=== PATIENT | female | born 1975 | race Caucasian/White ===

== ENCOUNTER 2018-05-07 19:09 | Inpatient (IN) | payer MEDICAID ==
[~2018-05-07] VITALS: Ht 157.5 cm; Wt 115.2 kg
[2018-05-07 19:16] VITALS: Ht 157.5 cm; Wt 115.2 kg
[2018-05-07] MEDS ORDERED: hydrALAzine 20 MG INJ IV ONE (20:00)
[2018-05-07] MEDS ORDERED: FUROSEMIDE 20 MG INJ IV ONE (21:00)
[2018-05-07] MEDS ORDERED: METOPROLOL 5 MG INJ IV ONE (21:00)
[2018-05-07] MEDS ORDERED: ACETAMINOPHEN 325 MG TAB PO PRN (22:00)
[2018-05-07] MEDS ORDERED: ONDANSETRON 4 MG INJ IV PRN (22:00)
[2018-05-07 22:18] VITALS: PULSE 95
--- NOTE | 2018-05-07 22:30 | ERD ---
ER Documentation Chief Complaint Chief Complaint sob, anxiety, htn; symptoms x 2 weeks but getting worse HPI 42-year-old female presenting with complaints of shortness of breath at rest, worse with any exertion. Her symptoms started 2 weeks ago and are progressively worsening. She was seen at [facility] where she was given labetalol to take outpatient for new diagnosis of hypertension. However she did not tolerate that medication so she stopped taking it. She has not followed up outpatient with a primary doctor. She had bilateral lower extremity swelling that seems to be somewhat improved. However she has difficulty sleeping at night due to her shortness of breath. She complains of extreme fatigue, wo rsened by any type of exertion. No fevers or chills. She does have a cough. She does have chest tightening with exertion as well. Currently she denies any chest pain. ROS All systems reviewed and are negative except as per history of present illness. Allergies Allergies: Coded Allergies: No Known Allergy (Unverified , 05/07/18) PMhx/Soc History of Surgery: Yes (4 CS) Anesthesia Reaction: No Hx Neurological Disorder: No Hx Respiratory Disorders: No Hx Cardiac Disorders: Yes (HTN) Hx Psychiatric Problems: No Hx Miscellaneous Medical Probl: No Hx Alcohol Use: No Hx Substance Use: Yes (Marijuana, occasional meth) Hx Tobacco Use: No Smoking Status: Never smoker FmHx Mother had lupus Physical Exam Vitals Vital Signs Date Temp Pulse Resp B/P (MAP) Pulse Ox O2 O2 Flow FiO2 Time Delivery Rate 05/07/18 95 22:18 05/07/18 91 18 184/134 99 Room Air 22:05 (151) 05/07/18 107 19 208/151 99 Room Air 21:32 (170) 05/07/18 103 17 197/138 100 Room Air 20:46 (157) 05/07/18 105 20 200/138 98 Room Air 20:16 (158) 05/07/18 111 22 213/60 99 Room Air 19:35 (110) 05/07/18 98.4 117 18 232/168 98 19:16 (189) Physical Exam Const: No acute distress Head: Atraumatic Eyes: Normal Conjunctiva ENT: Normal External Ears, Nose and Mouth. Neck: Full range of motion. No meningismus. No obvious JVD but exam limited by body habitus Resp: Bibasilar crackles. No wheezing Cardio: Tachycardic, regular rhythm, no murmurs. 2+ distal pulses Abd: Soft, non tender, non distended. Normal bowel sounds Skin: No petechiae or rashes Back: No midline or flank tenderness Ext: No cyanosis, 1+ bilateral lower extremity pitting edema up to the mid bailey. Neur: Awake and alert Psych: Normal Mood and Affect Result Diagram: 05/07/18195805/07/181958 Results 24 hrs Laboratory Tests Test 05/07/18 19:59 05/07/18 20:35 05/07/18 20:42 White Blood Count 11.0 10^3/ul Red Blood Count 4.49 10^6/ul Hemoglobin 11.3 g/dl Hematocrit 35.1 % Mean Corpuscular Volume 78.2 fl Mean Corpuscular Hemoglobin 25.2 pg Mean Corpuscular 32.2 g/dl Hemoglobin Concent Red Cell Distribution Width 14.6 % Platelet Count 351 10^3/UL Mean Platelet Volume 9.7 fl Immature Granulocytes % 0.600 % Neutrophils % 74.8 % Lymphocytes % 17.4 % Monocytes % 4.4 % Eosinophils % 1.9 % Basophils % 0.9 % Nucleated Red Blood Cells % 0.2 /100WBC Immature Granulocytes # 0.070 10^3/ul Neutrophils # 8.2 10^3/ul Lymphocytes # 1.9 10^3/ul Monocytes # 0.5 10^3/ul Eosinophils # 0.2 10^3/ul Basophils # 0.1 10^3/ul Nucleated Red Blood Cells # 0.0 10^3/ul Sodium Level 139 mmol/L Potassium Level 4.0 mmol/L Chloride Level 107 mmol/L Carbon Dioxide Level 21 mmol/L Anion Gap 11 Blood Urea Nitrogen 28 mg/dl Creatinine 1.09 mg/dl Est Glomerular Filtrat 55 mL/min Rate mL/min Glucose Level 125 mg/dl Calcium Level 9.0 mg/dl Total Bilirubin 0.6 mg/dl Direct Bilirubin 0.00 mg/dl Indirect Bilirubin 0.6 mg/dl Aspartate Amino 50 IU/L Transf (AST/SGOT) Alanine 69 IU/L Aminotransferase (ALT/SGPT) Alkaline Phosphatase 54 IU/L Troponin I 0.032 ng/ml B-Type Natriuretic Peptide 95765 PG/ML Total Protein 6.3 g/dl Albumin 3.6 g/dl Globulin 2.70 g/dl Albumin/Globulin Ratio 1.33 Urine Color YELLOW Urine Clarity CLEAR Urine pH 6.0 Urine Specific [place] 1.015 Urine Ketones NEGATIVE mg/dL Urine Nitrite NEGATIVE mg/dL Urine Bilirubin NEGATIVE mg/dL Urine Urobilinogen NEGATIVE mg/dL Urine Leukocyte Esterase NEGATIVE Fredo/ul Urine Microscopic RBC 0 /HPF Urine Microscopic WBC 1 /HPF Urine Squamous Epithelial Cells FEW /HPF Urine Mucus FEW /HPF Urine Hemoglobin NEGATIVE mg/dL Urine Glucose NEGATIVE mg/dL Urine Total Protein 2+ mg/dl POC Beta HCG, Qualitative NEGATIVE Current Medications Medications Dose Sig/Boris Start Time Status Last (Trade) Ordered Route PRN Stop Time Admin Dose Reason Admin Hydralazine 10 mg ONCE ONCE 05/07/18 DC 05/07/18 HCl IV 20:00 19:56 (Apresoline) 05/07/18 20:01 Metoprolol 5 mg ONCE ONCE 05/07/18 DC 05/07/18 Tartrate IV 21:00 21:32 (Lopressor) 05/07/18 21:01 Furosemide 20 mg ONCE ONCE 05/07/18 DC 05/07/18 (Lasix) IV 21:00 21:31 05/07/18 21:01 Ondansetron 4 mg ER BRIDGE 05/07/18 HCl (Zofran PRN IV 22:00 05/08/18 Inj) NAUSEA/VOMITI 21:59 NG 650 mg ER BRIDGE 05/07/18 Acetaminophen PRN PO 22:00 05/08/18 (Tylenol .MILD PAIN 21:59 Tab) 1-3 OR TEMP Procedures/MDM EMERGENT LABS AND DIAGNOSTIC STUDIES: Lab Results above were reviewed and interpreted by me. CBC: no anemia or evidence of infection CMP: Elevated BUN and slightly elevated creatinine, possibly due to renal insufficiency. No evidence of electrolyte abnormality, hypoglycemia, liver failure, or biliary obstruction BNP significantly elevated at 10,500, appropriate in the setting of acute CHF Troponin within normal limits, not indicative of cardiac ischemia 12-lead EKG #1 was interpreted by Rosales Padilla MD: Sinus tachycardia 116 bpm Normal axis Normal intervals No acute ST or T wave changes suggestive of acute ischemia or STEMI. 12-lead EKG #2 was interpreted by Rosales Padilla MD: Sinus tachycardia 116 bpm Normal axis Normal intervals No acute ST or T wave changes suggestive of acute ischemia or STEMI. Radiology Results as interpreted by Radiology below were reviewed by Robert Padilla MD: Chest x-ray shows cardiomegaly, no evidence of fluid overload or consolidation Initial Nursing notes reviewed. Previous Medical Records requested via the Electronic Health Record. EMERGENCY DEPARTMENT COURSE / MEDICAL DECISION MAKING: Patient symptoms are worrisome for acute heart failure secondary to hypertensive emergency. Patient was treated with IV hydralazine, IV metoprolol, and Lasix. There is no evidence of ACS. Patient will require admission for further workup of acute heart failure. Further w/u for ischemia, arrhythmia, PE or dissection will be deferred to the inpatient team. Critical Care Time: 40 minutes Treatments/Evaluations: Close monitoring and treatment of unstable vital signs, cardiorespiratory, and neurologic status, while maintaining tight balance of fluid, respiratory, and cardiac interventions. This time includes discussing the case with the patient and the patients family. This time does not include all procedures stated elsewhere in this record. This time also includes reviewing old records, labs and radiological studies. This time includes examining and re- examining the patient. Additionally, this time also includes arranging care with admitting and consulting physicians. Accepting Care Team: Current data and ongoing care discussed. Time: Time of admission Primary Provider: Dr. Dias Consulting: none Outstanding Data: none Patient's blood pressure was elevated (>120/80) but appears stable without evidence of hypertensive emergency or urgency. The patient was counseled about the risks of hypertension and urged to pursue outpatient monitoring and therapy within a week with their primary care physician. Departure Diagnosis: Primary Impression: Hypertensive emergency Additional Impressions: CHF, acute Heart failure type: unspecified Qualified Codes: I50.9 - Heart failure, unspecified Renal insufficiency Condition: Serious NINA PADILLA MD May 07, 2018 22:30
--- NOTE | 2018-05-07 23:43 | HP ---
Date/Time of Note Date/Time of Note DATE: 05/07/18 TIME: 23:43 Assessment/Plan VTE Prophylaxis Pharmacological prophylaxis: heparin Lines/Catheters IV [facility]from [facility] Saline Lock Assessment/Plan Assessment/Plan 1. New onset CHF -Telemetry monitoring -will diurese -2D echo -Beta-darian and ACEI -Trend troponin 2. Hypertensive urgency: -Manage with beta-darian and ACEI. Adjust antihypertensives as needed 3. Mild renal insufficiency, presumed acute: Most likely secondary to hypertensive nephrosclerosis -Monitor for now. Avoid nephrotoxins -Renal ultrasound and nephrology consult as needed 4. Proteinuria: She will be on ACEI for management of hypertension Result Diagram: 05/07/18195805/07/181958 Results 24hrs Laboratory Tests Test 05/07/18 19:59 05/07/18 20:35 05/07/18 20:42 White Blood Count 11.0 H Red Blood Count 4.49 Hemoglobin 11.3 L Hematocrit 35.1 L Mean Corpuscular Volume 78.2 L Mean Corpuscular Hemoglobin 25.2 L Mean Corpuscular Hemoglobin Concent 32.2 Red Cell Distribution Width 14.6 H Platelet Count 351 Mean Platelet Volume 9.7 Immature Granulocytes % 0.600 H Neutrophils % 74.8 Lymphocytes % 17.4 Monocytes % 4.4 Eosinophils % 1.9 Basophils % 0.9 Nucleated Red Blood Cells % 0.2 H Immature Granulocytes # 0.070 H Neutrophils # 8.2 H Lymphocytes # 1.9 Monocytes # 0.5 Eosinophils # 0.2 Basophils # 0.1 Nucleated Red Blood Cells # 0.0 Sodium Level 139 Potassium Level 4.0 Chloride Level 107 Carbon Dioxide Level 21 Anion Gap 11 Blood Urea Nitrogen 28 H Creatinine 1.09 H Est Glomerular Filtrat Rate mL/min 55 L Glucose Level 125 Calcium Level 9.0 Total Bilirubin 0.6 Direct Bilirubin 0.00 Indirect Bilirubin 0.6 Aspartate Amino Transf (AST/SGOT) 50 H Alanine Aminotransferase (ALT/SGPT) 69 Alkaline Phosphatase 54 Troponin I 0.032 B-Type Natriuretic Peptide 80086 H Total Protein 6.3 Albumin 3.6 Globulin 2.70 Albumin/Globulin Ratio 1.33 Urine Color YELLOW Urine Clarity CLEAR Urine pH 6.0 Urine Specific [place] 1.015 Urine Ketones NEGATIVE Urine Nitrite NEGATIVE Urine Bilirubin NEGATIVE Urine Urobilinogen NEGATIVE Urine Leukocyte Esterase NEGATIVE Urine Microscopic RBC 0 Urine Microscopic WBC 1 Urine Squamous Epithelial Cells FEW Urine Mucus FEW A Urine Hemoglobin NEGATIVE Urine Glucose NEGATIVE Urine Total Protein 2+ H POC Beta HCG, Qualitative NEGATIVE HPI/ROS Admit Date/Time Admit Date/Time May 07, 2018 at 22:30 Hx of Present Illness This is a 42-year-old female with recently diagnosed hypertension who presents to ER complaining of shortness of breath and lower extremity swelling and anxiety. She said symptoms started about a month ago. She said around the time of symptom onset, she was under a lot of stress related to her apartment. Two weeks ago she went to [facility] where she was found to have a systolic blood pressure in the 200s. She was discharged from the ER with la betalol. She took labetalol for 1 day, but stopped taking it because of side effects (nausea, vomiting, itching). She took labetalol again a week ago with similar side effects and as such she stopped it completely. She came to the ER now of breath and lower extremity swelling. When presented to ER, she is found to have a blood pressure of 232/168. BNP of 10,500, creatinine 1.09, BUN 28. Chest x-ray shows cardiomegaly. UA with 2+ protein PMH/Family/Social Past Medical History Medical History: other (Recently diagnosed hypertension) Medications Current Medications Ondansetron HCl (Zofran Inj) 4 mg ER BRIDGE PRN IV NAUSEA/VOMITING; Start 05/07/18 at 22:00; Stop 05/08/18 at 21:59 Acetaminophen (Tylenol Tab) 650 mg ER BRIDGE PRN PO .MILD PAIN 1-3 OR TEMP; Start 05/07/18 at 22:00; Stop 05/08/18 at 21:59 Coded Allergies: No Known Allergy (Unverified , 05/07/18) Past Surgical History Past Surgical Hx: other (See HPI) Family History Significant Family History: no pertinent family hx Social History Alcohol Use: none Smoking Status: Never smoker Drug Use: other (Marijuana and speed when she was younger) Exam/Review of Systems Vital Signs Vitals Vital Signs Date Temp Pulse Resp B/P (MAP) Pulse Ox O2 O2 Flow FiO2 Time Delivery Rate 05/07/18 95 22:18 05/07/18 18 184/134 99 Room Air 22:05 (151) 05/07/18 98.4 19:16 Exam Constitutional: alert, oriented, well developed Head: normocephalic, atraumatic Eyes: EOMI, PERRL Respiratory: clear to auscultation, normal air movement Cardiovascular: regular rate and rhythm, nl pulses Gastrointestinal: soft Extremities: edema STEPHEN FIELDS MD May 07, 2018 23:43
[2018-05-08] VITALS (14 sets, daily range): BP systolic 141–204; BP diastolic 86–128; PULSE 81–95; RESP 17–18
[2018-05-08] MEDS ORDERED: ACETAMINOPHEN 325 MG TAB PO PRN
[2018-05-08] MEDS ORDERED: NACL 0.9% 3 ML SYG IV SCH
[2018-05-08] MEDS ORDERED: IPRATROPIUM (NEB) 0.5 MG/2.5 ML AMP NEB PRN
[2018-05-08] MEDS ORDERED: LEVALBUTEROL (NEB) 0.63 MG/3 ML AMP HHN PRN
[2018-05-08] MEDS ORDERED: LABETALOL HCL 20MG INJ IV PRN
[2018-05-08] MEDS ORDERED: NITROGLYCERIN (SL) 0.4 MG TAB SL PRN
[2018-05-08] MEDS ORDERED: ONDANSETRON 4 MG INJ IV PRN
[2018-05-08] MEDS ORDERED: hydrALAzine 20 MG INJ IV ONE (04:00)
[2018-05-08] MEDS ORDERED: AMLODIPINE 10 MG TAB PO ONE (04:00)
[2018-05-08] MEDS ORDERED: LISINOPRIL 20 MG TAB PO SCH (09:00)
[2018-05-08] MEDS: HEPARIN 5,000 UNIT/1 ML VIAL SC SCH ×2 (09:06→20:40)
[2018-05-08] MEDS ORDERED: POTASSIUM CHLORIDE (SR) 20 MEQ TAB PO STA (10:48)
[2018-05-08] MEDS ORDERED: MAGNESIUM SULFATE 3 GM in DEXTROSE 5% 100 ML IVPB ONE (12:00)
--- NOTE | 2018-05-08 14:41 | PN ---
Date/Time of Note Date/Time of Note DATE: 05/08/18 TIME: 14:40 Assessment/Plan VTE Prophylaxis Risk score (from Nsg)>0 risk: 4 SCD applied (from Nsg): Yes Pharmacological prophylaxis: heparin Lines/Catheters IV Catheter Type (from Nrs): Saline Lock Assessment/Plan Hospital Course SUBJECTIVE: Denies any chest pain or dyspnea. OBJECTIVE: Physical Exam General: Obese, 42 year-old female lying in bed in no apparent distress. HEENT: Normocephalic, atraumatic. Eyes: Anicteric sclerae, conjunctivae clear. ENT: Nasal septum midline, oral mucosa moist. Neck supple. Respiratory: Bilaterally diminished breath sounds. No use of accessory muscles of respiration. Cardiovascular: S1, S2 heard. Regular rate and rhythm. Abdomen: Soft, nontender, and nondistended. Bowel sounds positive in all 4 quadrants. Genitourinary: Deferred. Extremities: No cyanosis, no clubbing. Trace bilateral lower extremity edema. Peripheral pulses palpable. Neurologic: Cranial nerves II through XII grossly intact. The patient is awake, alert, and oriented. Skin: Normal skin turgor. No skin rashes. Labs & Vitals per chart ASSESSMENT & PLAN 42-year-old female with comorbidities including morbid obesity (BMI more than 46 kg/m square), and recently diagnosed hypertension who presented to the local emergency room because of dyspnea, bilateral lower extremity edema, and anxiety. The patient was transferred to [facility] for further management because of insurance reasons. 1. Hypertensive urgency. -Continue to lower her blood pressure gradually. -Continue CHIOMA inhibitors and beta-blockers. 2. Possible underlying congestive heart failure exacerbation, systolic versus diastolic dysfunction. -Pending 2D echocardiogram. -Pending cardiology consult. 3. Proteinuria. -Continue CHIOMA inhibitors. 4. Morbid obesity. -BMI more than 46 kg/m square. -Weight reduction advised. -Hemoglobin A1c 5.7. 5. Fluids, electrolytes, and nutrition. -Low-cholesterol diet. 6. DVT prophylaxis. -Subcutaneous Lovenox. 7. Plan. -Continue blood pressure control. -Await cardiology evaluation. The patient was seen in collaboration with Dr. Oakley. Result Diagram: 05/08/18 0513 05/08/18 0513 Results 24hrs Laboratory Tests Test 05/07/18 19:59 05/07/18 20:35 05/07/18 20:42 05/08/18 00:39 White Blood Count 11.0 H Red Blood Count 4.49 Hemoglobin 11.3 L Hematocrit 35.1 L Mean Corpuscular 78.2 L Volume Mean Corpuscular 25.2 L Hemoglobin Mean Corpuscular 32.2 Hemoglobin Concent Red Cell Distribution 14.6 H Width Platelet Count 351 Mean Platelet Volume 9.7 Immature Granulocytes 0.600 H % Neutrophils % 74.8 Lymphocytes % 17.4 Monocytes % 4.4 Eosinophils % 1.9 Basophils % 0.9 Nucleated Red Blood 0.2 H Cells % Immature Granulocytes 0.070 H # Neutrophils # 8.2 H Lymphocytes # 1.9 Monocytes # 0.5 Eosinophils # 0.2 Basophils # 0.1 Nucleated Red Blood 0.0 Cells # Sodium Level 139 Potassium Level 4.0 Chloride Level 107 Carbon Dioxide Level 21 Anion Gap 11 Blood Urea Nitrogen 28 H Creatinine 1.09 H Est Glomerular 55 L Filtrat Rate mL/min Glucose Level 125 Calcium Level 9.0 Total Bilirubin 0.6 Direct Bilirubin 0.00 Indirect Bilirubin 0.6 Aspartate Amino 50 H Transf (AST/SGOT) Alanine 69 Aminotransferase (ALT /SGPT) Alkaline Phosphatase 54 Troponin I 0.032 0.049 B-Type Natriuretic 21650 H Peptide Total Protein 6.3 Albumin 3.6 Globulin 2.70 Albumin/Globulin 1.33 Ratio Urine Color YELLOW Urine Clarity CLEAR Urine pH 6.0 Urine Specific 1.015 [place] Urine Ketones NEGATIVE Urine Nitrite NEGATIVE Urine Bilirubin NEGATIVE Urine Urobilinogen NEGATIVE Urine Leukocyte NEGATIVE Esterase Urine Microscopic RBC 0 Urine Microscopic WBC 1 Urine Squamous FEW Epithelial Cells Urine Mucus FEW A Urine Hemoglobin NEGATIVE Urine Glucose NEGATIVE Urine Total Protein 2+ H POC Beta HCG, NEGATIVE Qualitative Creatine Kinase 63 Creatine Kinase Index 2.4 Creatinine Kinase MB 1.50 (Mass) Test 05/08/18 05:13 White Blood Count 9.3 Red Blood Count 4.30 Hemoglobin 10.9 L Hematocrit 33.2 L Mean Corpuscular 77.2 L Volume Mean Corpuscular 25.3 L Hemoglobin Mean Corpuscular 32.8 Hemoglobin Concent Red Cell Distribution 14.6 H Width Platelet Count 317 Mean Platelet Volume 9.4 Immature Granulocytes 1.100 H % Neutrophils % 71.6 Lymphocytes % 17.0 Monocytes % 6.9 Eosinophils % 2.5 Basophils % 0.9 Nucleated Red Blood 0.0 Cells % Immature Granulocytes 0.100 H # Neutrophils # 6.6 Lymphocytes # 1.6 Monocytes # 0.6 Eosinophils # 0.2 Basophils # 0.1 Nucleated Red Blood 0.0 Cells # Sodium Level 140 Potassium Level 3.3 L Chloride Level 103 Carbon Dioxide Level 27 Anion Gap 10 Blood Urea Nitrogen 24 H Creatinine 1.05 H Est Glomerular 57 L Filtrat Rate mL/min Glucose Level 78 # Hemoglobin A1c 5.7 Calcium Level 9.1 Magnesium Level 1.4 L Total Bilirubin 0.4 Direct Bilirubin 0.00 Indirect Bilirubin 0.4 Aspartate Amino 35 Transf (AST/SGOT) Alanine 55 Aminotransferase (ALT /SGPT) Alkaline Phosphatase 46 Creatine Kinase 50 Creatine Kinase Index 2.9 Creatinine Kinase MB 1.43 (Mass) Troponin I 0.064 Total Protein 5.8 L Albumin 3.3 Globulin 2.50 Albumin/Globulin 1.32 Ratio Triglycerides Level 145 Cholesterol Level 121 LDL Cholesterol, 62 Calculated HDL Cholesterol 30 L Cholesterol/HDL Ratio 4.0 Thyroid Stimulating 1.630 Hormone (TSH) Exam/Review of Systems Exam Vitals Vital Signs Date Temp Pulse Resp B/P (MAP) Pulse Ox O2 O2 Flow FiO2 Time Delivery Rate 05/08/18 98.1 86 18 161/99 12:30 (119) 05/08/18 97 Room Air 07:36 Intake and Output 05/07/18 05/07/18 05/08/18 1515:00 23:00 07:00 IntakeIntake Total 940 ml BalanceBalance 940 ml Results Results 24hrs Laboratory Tests Test 05/07/18 19:59 05/07/18 20:35 05/07/18 20:42 05/08/18 00:39 White Blood Count 11.0 H Red Blood Count 4.49 Hemoglobin 11.3 L Hematocrit 35.1 L Mean Corpuscular 78.2 L Volume Mean Corpuscular 25.2 L Hemoglobin Mean Corpuscular 32.2 Hemoglobin Concent Red Cell Distribution 14.6 H Width Platelet Count 351 Mean Platelet Volume 9.7 Immature Granulocytes 0.600 H % Neutrophils % 74.8 Lymphocytes % 17.4 Monocytes % 4.4 Eosinophils % 1.9 Basophils % 0.9 Nucleated Red Blood 0.2 H Cells % Immature Granulocytes 0.070 H # Neutrophils # 8.2 H Lymphocytes # 1.9 Monocytes # 0.5 Eosinophils # 0.2 Basophils # 0.1 Nucleated Red Blood 0.0 Cells # Sodium Level 139 Potassium Level 4.0 Chloride Level 107 Carbon Dioxide Level 21 Anion Gap 11 Blood Urea Nitrogen 28 H Creatinine 1.09 H Est Glomerular 55 L Filtrat Rate mL/min Glucose Level 125 Calcium Level 9.0 Total Bilirubin 0.6 Direct Bilirubin 0.00 Indirect Bilirubin 0.6 Aspartate Amino 50 H Transf (AST/SGOT) Alanine 69 Aminotransferase (ALT /SGPT) Alkaline Phosphatase 54 Troponin I 0.032 0.049 B-Type Natriuretic 42910 H Peptide Total Protein 6.3 Albumin 3.6 Globulin 2.70 Albumin/Globulin 1.33 Ratio Urine Color YELLOW Urine Clarity CLEAR Urine pH 6.0 Urine Specific 1.015 [place] Urine Ketones NEGATIVE Urine Nitrite NEGATIVE Urine Bilirubin NEGATIVE Urine Urobilinogen NEGATIVE Urine Leukocyte NEGATIVE Esterase Urine Microscopic RBC 0 Urine Microscopic WBC 1 Urine Squamous FEW Epithelial Cells Urine Mucus FEW A Urine Hemoglobin NEGATIVE Urine Glucose NEGATIVE Urine Total Protein 2+ H POC Beta HCG, NEGATIVE Qualitative Creatine Kinase 63 Creatine Kinase Index 2.4 Creatinine Kinase MB 1.50 (Mass) Test 05/08/18 05:13 White Blood Count 9.3 Red Blood Count 4.30 Hemoglobin 10.9 L Hematocrit 33.2 L Mean Corpuscular 77.2 L Volume Mean Corpuscular 25.3 L Hemoglobin Mean Corpuscular 32.8 Hemoglobin Concent Red Cell Distribution 14.6 H Width Platelet Count 317 Mean Platelet Volume 9.4 Immature Granulocytes 1.100 H % Neutrophils % 71.6 Lymphocytes % 17.0 Monocytes % 6.9 Eosinophils % 2.5 Basophils % 0.9 Nucleated Red Blood 0.0 Cells % Immature Granulocytes 0.100 H # Neutrophils # 6.6 Lymphocytes # 1.6 Monocytes # 0.6 Eosinophils # 0.2 Basophils # 0.1 Nucleated Red Blood 0.0 Cells # Sodium Level 140 Potassium Level 3.3 L Chloride Level 103 Carbon Dioxide Level 27 Anion Gap 10 Blood Urea Nitrogen 24 H Creatinine 1.05 H Est Glomerular 57 L Filtrat Rate mL/min Glucose Level 78 # Hemoglobin A1c 5.7 Calcium Level 9.1 Magnesium Level 1.4 L Total Bilirubin 0.4 Direct Bilirubin 0.00 Indirect Bilirubin 0.4 Aspartate Amino 35 Transf (AST/SGOT) Alanine 55 Aminotransferase (ALT /SGPT) Alkaline Phosphatase 46 Creatine Kinase 50 Creatine Kinase Index 2.9 Creatinine Kinase MB 1.43 (Mass) Troponin I 0.064 Total Protein 5.8 L Albumin 3.3 Globulin 2.50 Albumin/Globulin 1.32 Ratio Triglycerides Level 145 Cholesterol Level 121 LDL Cholesterol, 62 Calculated HDL Cholesterol 30 L Cholesterol/HDL Ratio 4.0 Thyroid Stimulating 1.630 Hormone (TSH) Medications Medication Current Medications Ondansetron HCl (Zofran Inj) 4 mg ER BRIDGE PRN IV NAUSEA/VOMITING; Start 05/07 at 22:00; Stop 05/08/18 at 21:59 Acetaminophen (Tylenol Tab) 650 mg ER BRIDGE PRN PO .MILD PAIN 1-3 OR TEMP Last administered on 05/08/18at 03:57; Admin Dose 650 MG; Start 05/07/18 at 22:00; Stop 05/08/18 at 21:59 IV Flush (NS 3 ml) 3 ml PER PROTOCOL IV ; Start 05/08/18 at 00:00 Ondansetron HCl (Zofran Inj) 4 mg Q6H PRN IV NAUSEA/VOMITING; Start 05/08/18 at 00:00 Nitroglycerin (Nitroglycerin (Sl Tab) 0.4 Mg) 1 tab Q5M PRN SL .CHEST PAIN; Start 05/08/18 at 00:00 Acetaminophen (Tylenol Tab) 650 mg Q6H PRN PO .PAIN 1-3 OR TEMP; Start 05/08/18 at 00:00 Heparin Sodium (Porcine) (Heparin (5000 Units/1ml)) 5,000 unit Q12 SC Last administered on 05/08/18at 09:06; Admin Dose 5,000 UNIT; Start 05/08/18 at 09:00 Ipratropium [place] (Atrovent 0.02% (Neb)) 0.5 mg Q2H RESP THERAPY PRN NEB SHORTNESS OF BREATH; Start 05/08/18 at 00:00 Carvedilol (Coreg) 6.25 mg BID PO Last administered on 05/08/18at 08:57; Admin Dose 6.25 MG; Start 05/08/18 at 00:00 Levalbuterol (Xopenex Neb) 0.63 mg Q2H RESP THERAPY PRN HHN SOB, wheezing, hypoxia; Start 05/08/18 at 00:00 Lisinopril (Zestril) 20 mg DAILY PO Last administered on 05/08/18at 08:57; Admin Dose 20 MG; Start 05/08/18 at 09:00 Magnesium Sulfate 3 gm/Dextrose 106 ml @ 35.333 mls/ hr ONCE ONCE IVPB Last administered on 05/08/18at 12:40; Admin Dose 35.333 MLS/HR; Start 05/08/18 at 12:00; Stop 05/08/18 at 14:59 Hydralazine HCl (Apresoline) 10 mg Q6H PRN IV SBP>160; Start 05/08/18 at 14:00 HOWIE MARSHALL NP May 08, 2018 14:41
[2018-05-08] MEDS: hydrALAzine 20 MG INJ IV PRN (14:54)
--- NOTE | 2018-05-08 16:18 | RADRPT ---
Echocardiogram Report Patient Name: THADDEUS LUCIANOPatient ID: [id number] : 1975 (42y 9m)Study Date: 05/08/2018 1:31:46 PM Gender: FAccession #: [id number] Tech: DollyLayton Patel [facility] Location: 609 Ref.Physician: HOWIE MARSHALL Height(Cm): BSA: Weight(Kg): Quality: AdequateAccount #: Procedures: Echocardiographic Report: Transthoracic echocardiogram with complete 2D, M-Mode, and doppler examination. Indications: Evaluate Left Ventricular function. Measurements: 2D/M Mode Doppler Measurement Value Normal Range Measurement Value Normal Range LVIDd 2D 4.5 [ 3.8 - 5.2 ] cm AV Peak Cj 1.1 [ 100.0 - 170.0 ] cm/sec LVIDs 2D 3.1 [ 2.2 - 3.5 ] cm AV Peak PG 5.0 [ 2.0 - 9.0 ] mmHg LVPWd 2D 1.5 [ 0.6 - 0.9 ] cm LVOT Peak Cj 0.8 [ 70.0 - 110.0 ] cm/sec IVSd 2D 1.5 [ 0.6 - 0.9 ] cm LVOT Peak PG 2.0 [ 2.0 - 6.0 ] mmHg IVS/LVPW 2D 1.0 ratio MV E Peak Cj 1.1 [ 60.0 - 130.0 ] cm/sec AoR Diam 2D 2.9 [ 2.3 - 3.1 ] cm MV A Peak Cj 0.3 [ 100.0 - 120.0 ] cm/sec LA/Ao 2D 1 ratio MV E/A 3.3 [ 0.8 - 1.5 ] ratio LA Dimen 2D 4.2 [ 2.7 - 3.8 ] cm MV Decel Time 151 [ 104 - 258 ] msec Lat E` Cj 0.1 [ 10.0 - 15.0 ] cm/sec MV E/A 3.3 [ 0.8 - 1.5 ] ratio TR Peak Cj 2.1 [ 100.0 - 280.0 ] cm/sec TR Peak PG 18.0 mmHg RVSP 28.0 [ 10.0 - 36.0 ] mmHg RA Pressure 10.0 mmHg Findings: Left Ventricle: Normal left ventricular cavity size. Moderate concentric left ventricular hypertrophy. Mild global left ventricular systolic dysfunction. Ejection fraction is visually estimated at 45 %. Tissue Doppler/Mitral Doppler indices are consistent with restrictive physiology with markedly elevated left atrial pressure (Stage III-IV diastolic dysfunction). Right Ventricle: Normal right ventricular size. Normal right ventricular systolic function. Left Atrium: There is mild enlargement of left atrium. Right Atrium: The right atrium is normal in size. Mitral Valve: Mitral valve leaflets appear mildly thickened. Mild mitral annular calcification. Mild mitral valve regurgitation. Aortic Valve: Normal appearance of the aortic valve. No significant aortic stenosis or insufficiency. Tricuspid Valve: Normal appearance of the tricuspid valve. Estimated peak PA systolic pressure 28 mmHg. There is trace tricuspid regurgitation. Pulmonic Valve: Pulmonic valve not well visualized. Pericardium: Trivial pericardial effusion. Aorta: Normal aortic root. IVC: Normal size and normal respiratory collapse consistent with normal right atrial pressure. Conclusions: Normal left ventricular cavity size. Moderate concentric left ventricular hypertrophy. Mild global left ventricular systolic dysfunction. Ejection fraction is visually estimated at 45 %. Tissue Doppler/Mitral Doppler indices are consistent with restrictive physiology with markedly elevated left atrial pressure (Stage III-IV diastolic dysfunction). There is mild enlargement of left atrium. Mitral valve leaflets appear mildly thickened. Mild mitral annular calcification. Mild mitral valve regurgitation. Normal appearance of the aortic valve. No significant aortic stenosis or insufficiency. Normal appearance of the tricuspid valve. Estimated peak PA systolic pressure 28 mmHg. There is trace tricuspid regurgitation. Trivial pericardial effusion. Electronically Signed By: Reinier Kwok 2018-05-08 16:17:33 PDT
--- NOTE | 2018-05-08 18:41 | CONS ---
Assessment/Plan Assessment/Plan Hospital Course (Demo Recall) 1. Hypertensive urgency 2. Dyspnea possible mild congestive heart failure acute secondary to diastolic heart failure, out of control blood pressure 3. LVH 4. Morbid obesity, likely obstructive sleep apnea Recommendations: Patient also for cough tolerated Coreg well. We will increase it to 12.5 p.o. twice daily. Lisinopril will also be increased to 20 mg p.o. twice daily. Aldactone will be added. Lasix as needed basis only. We will consider addition of hydrochlorothiazide if needed Patient was explained about the side effect of medication. It was explained to her that she could not get and her blood pressure medication. It was explained to her that her blood pressure medication on transfer genic and will harm the baby if she gets . She said that she has no plan of and has been preventing getting DC planning for tomorrow on the blood pressure medications Patient was advised that she will need to have a regular primary care physician to adjust her medication as needed Thank you for his referral. We will continue to follow along with you CAROLYN ALMAGUER MD [facility] Consultation Date/Type/Reason Admit Date/Time May 07, 2018 at 22:30 Date of Consultation: May 08, 2018 Type of Consult Cardiology Reason for Consultation CHF . HTN Requesting Provider: HOWIE MARSHALL NP Date/Time of Note DATE: 05/08/18 TIME: 18:34 Hx of Present Illness Interventional cardiology consultation note Chief complaint: Shortness of breath Reason for consult: Possible congestive heart failure, hypertensive urgency History of present illness: Thank you for this referral. History was obtained from the patient discussion with her father discussion with the staff. This is a pleasant 42-year-old female with history of hypertension who came to emergency room with complaint. Patient currently has noted dyspnea on exertion over the past 6 months. A few weeks ago she was seen at [facility] emergency room and was noted to have a blood pressure over 200. She was discharged on labetalol. Apparently she took it one time and she did not tolerated. Her blood pressure has been elevated. She took another time and again did not tolerated. She has not been taking a blood pressure medication again she came into the emergency room because of increasing shortness of breath was noticeable blood pressure more than 200 He denies any chest pain or pressure to me denies any palpitation to me. Has had some cough which is resolved now She has been placed on blood pressure medication currently blood pressure under much better control her symptoms are completely resolved Allergies: nkda Medications were reviewed as per medical reconciliation sheet Family history: No history of early coronary artery disease Social history: Does not smoke or drink is for Past medical history: Hypertension as above Review of system: Patient denies all others except for above-mentioned Past Medical History Medications Current Medications Ondansetron HCl (Zofran Inj) 4 mg ER BRIDGE PRN IV NAUSEA/VOMITING; Start 05/07/18 at 22:00; Stop 05/08/18 at 21:59 Acetaminophen (Tylenol Tab) 650 mg ER BRIDGE PRN PO .MILD PAIN 1-3 OR TEMP Last administered on 05/08/18at 03:57; Admin Dose 650 MG; Start 05/07/18 at 22:00; Stop 05/08/18 at 21:59 IV Flush (NS 3 ml) 3 ml PER PROTOCOL IV ; Start 05/08/18 at 00:00 Ondansetron HCl (Zofran Inj) 4 mg Q6H PRN IV NAUSEA/VOMITING; Start 05/08/18 at 00:00 Nitroglycerin (Nitroglycerin (Sl Tab) 0.4 Mg) 1 tab Q5M PRN SL .CHEST PAIN; Start 05/08/18 at 00:00 Acetaminophen (Tylenol Tab) 650 mg Q6H PRN PO .PAIN 1-3 OR TEMP; Start 05/08/18 at 00:00 Heparin Sodium (Porcine) (Heparin (5000 Units/1ml)) 5,000 unit Q12 SC Last administered on 05/08/18at 09:06; Admin Dose 5,000 UNIT; Start 05/08/18 at 09:00 Ipratropium [place] (Atrovent 0.02% (Neb)) 0.5 mg Q2H RESP THERAPY PRN NEB SHORTNESS OF BREATH; Start 05/08/18 at 00:00 Carvedilol (Coreg) 6.25 mg BID PO Last administered on 05/08/18at 08:57; Admin Dose 6.25 MG; Start 05/08/18 at 00:00 Levalbuterol (Xopenex Neb) 0.63 mg Q2H RESP THERAPY PRN HHN SOB, wheezing, hypoxia; Start 05/08/18 at 00:00 Lisinopril (Zestril) 20 mg DAILY PO Last administered on 05/08/18at 08:57; Admin Dose 20 MG; Start 05/08/18 at 09:00 Hydralazine HCl (Apresoline) 10 mg Q6H PRN IV SBP>160 Last administered on 05/08/18at 14:54; Admin Dose 10 MG; Start 05/08/18 at 14:00 Allergies: Coded Allergies: No Known Allergy (Unverified , 05/07/18) Past Surgical History Past Surgical Hx: other (See HPI) Social History Alcohol Use: none Smoking Status: Never smoker Drug Use: other (Marijuana and speed when she was younger) Exam/Review of Systems Vital Signs Vitals Vital Signs Date Temp Pulse Resp B/P (MAP) Pulse Ox O2 O2 Flow FiO2 Time Delivery Rate 05/08/18 86 16:00 05/08/18 97.5 18 145/90 99 Room Air 15:38 (108) Intake and Output 05/07/18 05/07/18 05/08/18 1515:00 23:00 07:00 IntakeIntake Total 940 ml BalanceBalance 940 ml Exam Exam General: Obese female no acute distress HEENT: NC/AT. pupils are equal. round. NECK: NO JVD. no stridor. CV: RRR. systolic murmur; no gallop or rubs. PULM: no wheezing or rhonchi. GI: SOFT, NT, ND, no rebound or guarding Extremity: trace B/L LE edema. no clubbing. neuro: awake and alert, OX3. Psych: calm and pleasant rectal: deferred EKG was personally showed normal sinus rhythm. The patient enlargement. Nonspecific ST abnormalities. Poor R wave progression Normal left ventricular cavity size. Moderate concentric left ventricular hypertrophy. Mild global left ventricular systolic dysfunction. Ejection fraction is visually estimated at 45 %. Tissue Doppler/Mitral Doppler indices are consistent with restrictive physiology with markedly elevated left atrial pressure (Stage III-IV diastolic dysfunction). There is mild enlargement of left atrium. Mitral valve leaflets appear mildly thickened. Mild mitral annular calcification. Mild mitral valve regurgitation. Normal appearance of the aortic valve. No significant aortic stenosis or insufficiency. Normal appearance of the tricuspid valve. Estimated peak PA systolic pressure 28 mmHg. There is trace tricuspid regurgitation. Labs Result Diagram: 05/08/18 0513 05/08/18 0513 Results 24hrs Laboratory Tests Test 05/07/18:59 05/07/18 20:35 05/07/18 20:42 05/08/18 00:39 White Blood Count 11.0 H Red Blood Count 4.49 Hemoglobin 11.3 L Hematocrit 35.1 L Mean Corpuscular 78.2 L Volume Mean Corpuscular 25.2 L Hemoglobin Mean Corpuscular 32.2 Hemoglobin Concent Red Cell Distribution 14.6 H Width Platelet Count 351 Mean Platelet Volume 9.7 Immature Granulocytes 0.600 H % Neutrophils % 74.8 Lymphocytes % 17.4 Monocytes % 4.4 Eosinophils % 1.9 Basophils % 0.9 Nucleated Red Blood 0.2 H Cells % Immature Granulocytes 0.070 H # Neutrophils # 8.2 H Lymphocytes # 1.9 Monocytes # 0.5 Eosinophils # 0.2 Basophils # 0.1 Nucleated Red Blood 0.0 Cells # Sodium Level 139 Potassium Level 4.0 Chloride Level 107 Carbon Dioxide Level 21 Anion Gap 11 Blood Urea Nitrogen 28 H Creatinine 1.09 H Est Glomerular 55 L Filtrat Rate mL/min Glucose Level 125 Calcium Level 9.0 Total Bilirubin 0.6 Direct Bilirubin 0.00 Indirect Bilirubin 0.6 Aspartate Amino 50 H Transf (AST/SGOT) Alanine 69 Aminotransferase (ALT /SGPT) Alkaline Phosphatase 54 Troponin I 0.032 0.049 B-Type Natriuretic 19557 H Peptide Total Protein 6.3 Albumin 3.6 Globulin 2.70 Albumin/Globulin 1.33 Ratio Urine Color YELLOW Urine Clarity CLEAR Urine pH 6.0 Urine Specific 1.015 [place] Urine Ketones NEGATIVE Urine Nitrite NEGATIVE Urine Bilirubin NEGATIVE Urine Urobilinogen NEGATIVE Urine Leukocyte NEGATIVE Esterase Urine Microscopic RBC 0 Urine Microscopic WBC 1 Urine Squamous FEW Epithelial Cells Urine Mucus FEW A Urine Hemoglobin NEGATIVE Urine Glucose NEGATIVE Urine Total Protein 2+ H POC Beta HCG, NEGATIVE Qualitative Creatine Kinase 63 Creatine Kinase Index 2.4 Creatinine Kinase MB 1.50 (Mass) Test 05/08/18 05:13 White Blood Count 9.3 Red Blood Count 4.30 Hemoglobin 10.9 L Hematocrit 33.2 L Mean Corpuscular 77.2 L Volume Mean Corpuscular 25.3 L Hemoglobin Mean Corpuscular 32.8 Hemoglobin Concent Red Cell Distribution 14.6 H Width Platelet Count 317 Mean Platelet Volume 9.4 Immature Granulocytes 1.100 H % Neutrophils % 71.6 Lymphocytes % 17.0 Monocytes % 6.9 Eosinophils % 2.5 Basophils % 0.9 Nucleated Red Blood 0.0 Cells % Immature Granulocytes 0.100 H # Neutrophils # 6.6 Lymphocytes # 1.6 Monocytes # 0.6 Eosinophils # 0.2 Basophils # 0.1 Nucleated Red Blood 0.0 Cells # Sodium Level 140 Potassium Level 3.3 L Chloride Level 103 Carbon Dioxide Level 27 Anion Gap 10 Blood Urea Nitrogen 24 H Creatinine 1.05 H Est Glomerular 57 L Filtrat Rate mL/min Glucose Level 78 # Hemoglobin A1c 5.7 Calcium Level 9.1 Magnesium Level 1.4 L Total Bilirubin 0.4 Direct Bilirubin 0.00 Indirect Bilirubin 0.4 Aspartate Amino 35 Transf (AST/SGOT) Alanine 55 Aminotransferase (ALT /SGPT) Alkaline Phosphatase 46 Creatine Kinase 50 Creatine Kinase Index 2.9 Creatinine Kinase MB 1.43 (Mass) Troponin I 0.064 B-Type Natriuretic 7070 H Peptide Total Protein 5.8 L Albumin 3.3 Globulin 2.50 Albumin/Globulin 1.32 Ratio Triglycerides Level 145 Cholesterol Level 121 LDL Cholesterol, 62 Calculated HDL Cholesterol 30 L Cholesterol/HDL Ratio 4.0 Thyroid Stimulating 1.630 Hormone (TSH) Medications Medications Current Medications Ondansetron HCl (Zofran Inj) 4 mg ER BRIDGE PRN IV NAUSEA/VOMITING; Start 05/07/18 at 22:00; Stop 05/08/18 at 21:59 Acetaminophen (Tylenol Tab) 650 mg ER BRIDGE PRN PO .MILD PAIN 1-3 OR TEMP Last administered on 05/08/18at 03:57; Admin Dose 650 MG; Start 05/07/18 at 22:00; Stop 05/08/18 at 21:59 IV Flush (NS 3 ml) 3 ml PER PROTOCOL IV ; Start 05/08/18 at 00:00 Ondansetron HCl (Zofran Inj) 4 mg Q6H PRN IV NAUSEA/VOMITING; Start 05/08/18 at 00:00 Nitroglycerin (Nitroglycerin (Sl Tab) 0.4 Mg) 1 tab Q5M PRN SL .CHEST PAIN; Start 05/08/18 at 00:00 Acetaminophen (Tylenol Tab) 650 mg Q6H PRN PO .PAIN 1-3 OR TEMP; Start 05/08/18 at 00:00 Heparin Sodium (Porcine) (Heparin (5000 Units/1ml)) 5,000 unit Q12 SC Last administered on 05/08/18 09:06; Admin Dose 5,000 UNIT; Start 05/08/18 at 09:00 Ipratropium [place] (Atrovent 0.02% (Neb)) 0.5 mg Q2H RESP THERAPY PRN NEB SHORTNESS OF BREATH; Start 05/08/18 at 00:00 Carvedilol (Coreg) 6.25 mg BID PO Last administered on 05/08/18 08:57; Admin Dose 6.25 MG; Start 05/08/18 at 00:00 Levalbuterol (Xopenex Neb) 0.63 mg Q2H RESP THERAPY PRN HHN SOB, wheezing, hypoxia; Start 05/08/18 at 00:00 Lisinopril (Zestril) 20 mg DAILY PO Last administered on 05/08/18 08:57; Admin Dose 20 MG; Start 05/08/18 at 09:00 Hydralazine HCl (Apresoline) 10 mg Q6H PRN IV SBP>160 Last administered on 05/08/18at 14:54; Admin Dose 10 MG; Start 05/08/18 at 14:00 CAROLYN ALMAGUER MD May 08, 2018 18:41
[2018-05-08] MEDS: SPIRONOLACTONE 25 MG TAB PO SCH (20:30)
[2018-05-08] MEDS: LISINOPRIL 20 MG TAB PO SCH (20:31)
[2018-05-09] VITALS (8 sets, daily range): BP systolic 135–177; BP diastolic 78–106; PULSE 76–89; RESP 16–20
[2018-05-09] MEDS: hydrALAzine 20 MG INJ IV PRN ×2 (03:44→10:31)
[2018-05-09] MEDS: SPIRONOLACTONE 25 MG TAB PO SCH (08:20)
[2018-05-09] MEDS: LISINOPRIL 20 MG TAB PO SCH (08:21)
[2018-05-09] MEDS: HEPARIN 5,000 UNIT/1 ML VIAL SC SCH (08:31)
[2018-05-09] MEDS ORDERED: CARV12.579 PO (12:03)
[2018-05-09] MEDS ORDERED: LISI-471 PO (12:03)
[2018-05-09] MEDS ORDERED: SPIR25TA PO (12:03)
--- NOTE | 2018-05-09 12:10 | PDOCDIS ---
Discharge Instructions CONDITION [id number] Patient Condition: [id number] Stable HOME CARE INSTRUCTIONS: [id number] Diet Instructions: [id number] Low Fat /Cholesterol FOLLOW UP/APPOINTMENTS Follow-up Plan Logan Sauer MD Specialty: Internal Medicine Office Address: [address] [place], [place] [id number] Office OTHER ORDERS: Other Orders: 1. Take medications as per prescription. 2. Take a low-cholesterol diet. 3. Resume activities as tolerated. 4. Please follow-up with your primary care physician in 2 weeks. If you do not have a primary care physician, please call Dr. Logan Sauer's office 5. Please go to the nearest emergency room if you have any chest pain, shortness of breath, persistently elevated blood pressure, or any other unusual signs/symptoms. HOWIE MARSHALL NP May 09, 2018 12:10
--- NOTE | 2018-05-09 12:13 | DS ---
Date/Time of Note Date/Time of Note DATE: 05/09/18 TIME: 12:11 Discharge Summary Admission/Discharge Info Admit Date/Time May 07, 2018 at 22:30 Discharge Date/Time Discharge Diagnosis 1. Hypertensive emergency. 2. Congestive heart failure exacerbation, acute diastolic dysfunction. 3. Morbid obesity. BMI more than 46 kg/m square. Patient Condition: Stable Consults 1. Reinier Kwok MD, Cardiology. Procedures 2D Echocardiogram Conclusions: Normal left ventricular cavity size. Moderate concentric left ventricular hypertrophy. Mild global left ventricular systolic dysfunction. Ejection fraction is visually estimated at 45 %. Tissue Doppler/Mitral Doppler indices are consistent with restrictive physiology with markedly elevated left atrial pressure (Stage III-IV diastolic dysfunction). There is mild enlargement of left atrium. Mitral valve leaflets appear mildly thickened. Mild mitral annular calcification. Mild mitral valve regurgitation. Normal appearance of the aortic valve. No significant aortic stenosis or insufficiency. Normal appearance of the tricuspid valve. Estimated peak PA systolic pressure 28 mmHg. There is trace tricuspid regurgitation. Trivial pericardial effusion. Hx of Present Illness This is a 42-year-old female with comorbidities including morbid obesity (BMI more than 46 kg/m square), and recently diagnosed hypertension who presented to the local emergency room because of dyspnea, bilateral lower extremity edema, and anxiety. The patient was transferred to [facility] for further management because of insurance reasons. Hospital Course The patient was admitted to inpatient telemetry floor. The patient's blood pressure was controlled gradually. The patient had evidence of underlying congestive heart failure with elevated BNP and chest x-ray findings. A cardiology consult was obtained. The patient's blood pressure was lowered gradually. The patient underwent a 2D echocardiogram that was showing ejection fraction of 45% and stage III to stage IV diastolic dysfunction. The patient had underlying acute diastolic heart failure most probably secondary to uncontrolled blood pressure. The patient's clinical examination did not show any significant fluid overload. Therefore, the patient was started only on aldosterone antagonist. The patient was also started on beta-blockers and CHIOMA inhibitors. The patient was also noticed to have proteinuria. The patient was continued on CHIOMA inhibitors. The patient was noticed to be morbidly obese with a BMI of more than 46 kg/m. The patient was advised on weight reduction. The patient's hemoglobin A1c was found to be 5.7. The patient had a stable hospital course. The patient was cleared by cardiology to be discharged home. Discharge Instructions 1. Take medications as per prescription. 2. Take a low-cholesterol diet. 3. Resume activities as tolerated. 4. Please follow-up with your primary care physician in 2 weeks. If you do not have a primary care physician, please call Dr. Logan Sauer's office 5. Please go to the nearest emergency room if you have any chest pain, shortness of breath, persistently elevated blood pressure, or any other unusual signs/symptoms. The patient verbalized understanding of her discharge instructions. At this time I would like to thank Dr. Kwok for seeing the patient in providing clinical recommendations. The patient was seen in collaboration with Dr. Oakley. Home Meds Active Scripts Spironolactone* (Aldactone*) 25 Mg Tablet, 25 MG PO DAILY, #30 TAB Prov:HOWIE MARSHALL DRY END TESTER 05/09/18 Lisinopril* (Lisinopril*) 20 Mg Tablet, 20 MG PO BID, #60 TAB Prov:HOWIE MARSHALL DRY END TESTER 05/09/18 Carvedilol* (Carvedilol*) 12.5 Mg Tablet, 12.5 MG PO BID, #60 TAB Prov:HOWIE MARSHALL DRY END TESTER 05/09/18 Follow-up Plan Logan Sauer MD Specialty: Internal Medicine Office Address: [address] [place] [address] Office Primary Care Provider Care Physician No Primary Time spent on discharge: > 30 minutes Pending Labs Laboratory Tests Test 05/09/18 05:33 White Blood Count 10.1 10^3/ul (4.8-10.8) Red Blood Count 4.69 10^6/ul (4.20-5.40) Hemoglobin 11.7 g/dl (12.0-16.0) Hematocrit 36.1 % (37.0-47.0) Mean Corpuscular Volume 77.0 fl (82.0-101.0) Mean Corpuscular Hemoglobin 24.9 pg (29.0-33.0) Mean Corpuscular Hemoglobin Concent 32.4 g/dl (32.0-37.0) Red Cell Distribution Width 14.7 % (11.5-14.5) Platelet Count 357 10^3/UL (140-415) Mean Platelet Volume 9.6 fl (7.4-10.4) Immature Granulocytes % 0.600 % (0.001-0.429) Neutrophils % 70.7 % (39.0-77.0) Lymphocytes % 17.4 % (15.0-51.0) Monocytes % 7.2 % (0.0-11.0) Eosinophils % 3.2 % (0.0-7.0) Basophils % 0.9 % (0.0-2.0) Nucleated Red Blood Cells % 0.0 /100WBC (0.0-0.0) Immature Granulocytes # 0.060 10^3/ul (0.0-0.031) Neutrophils # 7.2 10^3/ul (1.6-7.5) Lymphocytes # 1.8 10^3/ul (0.8-2.9) Monocytes # 0.7 10^3/ul (0.3-0.9) Eosinophils # 0.3 10^3/ul (0.0-0.5) Basophils # 0.1 10^3/ul (0.0-0.1) Nucleated Red Blood Cells # 0.0 10^3/ul (0.0-0.0) Sodium Level 137 mmol/L (135-144) Potassium Level 4.4 mmol/L (3.5-5.1) Chloride Level 103 mmol/L (97-110) Carbon Dioxide Level 25 mmol/L (21-31) Anion Gap 9 (5-13) Blood Urea Nitrogen 23 mg/dl (7-20) Creatinine 0.97 mg/dl (0.44-1.00) Est Glomerular Filtrat Rate mL/min > 60 mL/min (>60) Glucose Level 100 mg/dl (70-220) Calcium Level 8.8 mg/dl (8.4-10.2) Phosphorus Level 4.0 mg/dl (2.5-4.9) Magnesium Level 1.9 mg/dl (1.7-2.5) B-Type Natriuretic Peptide 2540 PG/ML (0-125) HOWIE MARSHALL NP May 09, 2018 12:13
== END 2018-05-09 12:40 | disposition home or self-care (01) | DRG 291 ==
LOC: E/R 19:09 → 6WM 22:09
PROVIDERS: ADMIT Internal Medicine; ATTEND Internal Medicine
DX: I11.0 Hypertensive heart disease with heart failure (principal); I50.31 Acute diastolic (congestive) heart failure; Z68.42 Body mass index [BMI] 45.0-49.9, adult; I16.1 Hypertensive emergency; E66.01 Morbid (severe) obesity due to excess calories; I16.0 Hypertensive urgency; G47.33 Obstructive sleep apnea (adult) (pediatric)
CPT/HCPCS: 36415; 71045; 80048; 80053; 80061; 81001; 81025; 82550; 82553; 83036; 83735; 83880; 84100; 84443; 84484; 85025; 93005; 93306; 96374; 96375; J0360; J1644; J1940; J3475